=== PATIENT | female | born 2005 | race Caucasian/White ===

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

== ENCOUNTER → 2024-02-20 10:14 | Outpatient (REF) | payer OTHER, SELFPAY | LOC: RAD 10:14 | PROVIDERS: ATTENDING PHYSICIAN Internal Medicine; FAMILY PHYSICIAN Family Medicine | DX: R11.0 Nausea (principal) | CPT/HCPCS: 78264; A9541 ==

== ENCOUNTER → 2024-03-03 19:06 | Outpatient (REF) | payer OTHER, SELFPAY | LOC: PAVMRI 19:06 | PROVIDERS: ATTENDING PHYSICIAN Physician Assistant Medical | DX: R51.9 Headache, unspecified (principal) | CPT/HCPCS: 70551 ==

== ENCOUNTER 2024-03-23 12:49 | Emergency (ER) | payer OTHER, SELFPAY ==
[2024-03-23 12:54] VITALS: BP 116/73
--- NOTE | 2024-03-23 15:21 | ED.GENMED ---
History of Present Illness
General
Chief Complaint: Chest Problem
Source: patient
Exam Limitations: none
Time Seen by Provider: 03/23/24 15:03
History of Present Illness
History of Present Illness:
19yoF with a history of gastroparesis and migraines presenting for evaluation of chest pain. Patient reports having left sided chest pain which she describes as 'heart pain.' Pain started after taking 20mg of Zofran 3 days ago. Pain has been
constant but intermittently worsens. Nothing seems to make the pain better or worse. She was having some palpitations earlier today as well. She called her PCP and she was advised to go to the ED for evaluation. Patient denies any pleuritic pain or
shortness of breath. No dizziness or syncope. No OCP use. She was seen by a webbing supervisor about a year ago and was told that she may have POTS.
Phy Exam
General Physical Exam
General Presentation: well appearing and no apparent distress
General age: appears stated age
General Skin: warm and dry
General Habitus: normal
General Mental: alert
ENT Exam
ENT Exam: normocephalic
Cardiovascular Exam
Cardiovascular Exam: regular rate/rhythm, no edema, no murmur and normal peripheral pulses (2+ PT pulses bilaterally)
Pulmonary Exam
Pulmonary Exam: lungs clear, no respiratory distress, no rales, no crackles and no wheezing
Neurological Exam
Neurological Exam: alert
Ember Coma Scale
Eye Opening: Spontaneous
Verbal Response: Oriented
Motor Response: Obeys Commands
GCS Total Score: 15
Skin Exam
Skin Exam: normal color and warm/dry
Psychiatric Exam
Psychiatric Exam: normal mood/affect
Scores
PE Wells Score
Symptoms of DVT: No
No alternative diagnosis better explains the illness: No
Tachycardia with pulse > 100: No
Immobilization (>=3 days) or surgery within previous 4 weeks: No
Prior history of DVT or pulmonary embolism: No
Presence of hemoptysis: No
Presence of malignancy: No
Pulmonary Embolism Risk Score: 0
Probability of PE: Pt is low risk
PERC Rule Criteria
Age <50 years: Yes
HR <100 bpm: Yes
Room air oxygen sat >94%: Yes
History of DVT or PE: No
Recent trauma or surgery: No
Hemoptysis: No
Exogenous estrogen: No
Clinical signs suggestive of DVT: No
: No
Considered low risk for PE: Yes
PERC Score: 0
PE can be excluded by PERC: Yes
Course
Orders/Labs/Results
Orders:
Orders
03/23/24 12:56
Electrocardiogram (*1) Urgent
Reason for Study: Shortness of Breath
03/23/24 12:57
EKG- Treatment ONCE
Test Result ONCE
03/23/24 13:42
CR Chest - 2 Views Urgent
Comment:
Reason For Exam: cp
03/23/24 15:29
Complete Blood Count/With Diff Urgent
Comprehensive Metabolic Panel Urgent
HCG, Serum Qualitative Screen Urgent
Troponin I Urgent
03/23/24 15:29
03/23/24 15:29
Vital Signs
Initial and Last Documented VS:
Initial Vital Signs
Temp Pulse Resp BP Pulse Ox
98.4 F 68 18 116/73 100
03/23/24 12:54 03/23/24 12:54 03/23/24 12:54 03/23/24 12:54 03/23/24 12:54
Last Documented Vital Signs
Temp Pulse Resp BP Pulse Ox
98.4 F 68 18 116/73 99
03/23/24 12:54 03/23/24 12:54 03/23/24 12:54 03/23/24 12:54 03/23/24 15:38
MDM/Problems Addressed
Differential Diagnosis Includes:
19yoF here with 'heart pain' x 3 days. Started after taking 20mg Zofran. Had some palpitations earlier. VSS. She is well appearing in no distress. Exam is reassuring. Differential diagnosis includes but is not limited to: Musculoskeletal,
pneumonia, pneumothorax, arrhythmia, less likely ACS
Initial ED plan: Check cardiac labs, EKG, hCG, and chest x-ray. Patient is low risk according to Wells score and PERC criteria negative. PE is clinically ruled out.
*EKG
Interpreted by ED Provider?: Yes
EKG Intrepretation Date: 03/23/24
Heart Rate: 62
Rate: normal
Rhythm: sinus
[place]: normal axis
Interval: normal interval
QRS Pattern: normal QRS
Ischemia: no ischemia
*Critical Care Note
Total Time (30-74mins, 75-104mins- exclusive of procedures): Not Applicable
Update Note
Update Note:
Labs overall unremarkable. EKG shows normal sinus rhythm without ischemic changes and troponin within normal limits. Chest x-ray is clear per my interpretation. Heart score is 0. Medication for hospitalization. Advised PCP follow-up and ED
return precautions discussed. She expressed standing and is agreement with plan. She was discharged stable condition.
ED Attending Note
-
Portions of this chart may have been created with voice recognition software.� Occasional wrong word or��sound alike� substitutions may have occurred due to the inherent limitations of voice recognition software.
Discharge Plan
Departure
Patient Disposition: Home (Routine Discharge)
Date of Disposition: 03/23/24
Time of Disposition: 16:42
Patient with high blood pressure during this ER visit?: No
Discharge Problem:
Chest pain
Instructions: Chest Pain PCP Follow Up
Prescriptions:
No Action
fluticasone propionate 1 SPRAY spray,suspension
1 spray intranasal DAILY
Referrals:
Ana Paula Paez CRNP [Family Provider] -
Activity Restrictions/Additional Instructions:
Please follow-up with your family doctor. Return to the ER with any new or worsening symptoms.
Interventions
Interventions:
*Risk Screen - Suicide Last Done: 03/23/24 12:54
*General Assessment Last Done: 03/23/24 12:54
*Neglect/Abuse Screening Last Done: 03/23/24 12:54
ED- Fall Risk Assessment Last Done: 03/23/24 15:38
*ED COVID-19 Vaccine History Last Done: 03/23/24 15:38
ED- Cardiac Assessment Last Done: 03/23/24 15:38
ED- Pulmonary Assessment Last Done: 03/23/24 15:38
Discharge Date and Time
Print Language: GAMBIAN
[2024-03-23 15:25] VITALS: BMI 19.5
[2024-03-23 15:31] VITALS: BP 103/69
[2024-03-23 15:45] LABS: % Basophils 0.5 % (0-2); % Eosinophils 2.9 % (0-6); % Immature Granulocytes 0.2 % (0-0.5); % Lymphocytes 35.9 % (20.5-51.1); % Monocytes 6.1 % (1.7-9.3); % Neutrophils 54.4 % (42.2-75.2); Absolute Eosinophils 0.2 10^3/uL (0-0.7); Absolute Monocytes 0.3 10^3/uL (0.1-0.6); Absolute Neutrophils 3.1 10^3/uL (1.4-6.5); Hematocrit 37.3 % (37.0-47.0); Hemoglobin 12.5 g/dL (12.0-16.0); Mean Corp Hgb Conc. 33.5 g/dL (33.0-37.0); Mean Corpuscular Hgb 29.6 pg (27.0-31.0); Mean Corpuscular Volume 88.4 fL (81.0-99.0); Nucleated Red Blood Cells % 0 %; Platelet Count 259 10^3/uL (130-400); Red Blood Cell Count 4.22 10^6/uL (4.20-5.40); White Blood Cell Count 5.6 10^3/uL (4.8-10.8)
[2024-03-23 15:53] LABS: HCG, Serum Qualitative Screen Negative
[2024-03-23 15:57] LABS: ALT (SGPT) 12 U/L (0-35); AST (SGOT) 22 U/L (14-36); Albumin 4.6 g/dl (3.5-5.0); Alkaline Phosphatase 67 U/L (38-126); Blood Urea Nitrogen 11 mg/dl (7-17); Calcium 9.6 mg/dl (8.4-10.2); Carbon Dioxide 29 mmol/L (22-30); Chloride 101 mmol/L (98-107); Estimated Creatinine Clearance 110 ml/min; Glucose 93 mg/dl (70-99); Potassium 4.2 mmol/L (3.5-5.1); Sodium 137 mmol/L (135-145); Total Bilirubin 0.5 mg/dl (0.2-1.3); Total Protein 7.1 g/dl (6.3-8.2); eGFR > 60.00
[2024-03-23 16:00] VITALS: BP 105/56
[2024-03-23 16:08] LABS: Troponin I < 0.012 ng/ml
[2024-03-23 17:21] VITALS: BP 111/62
== END 2024-03-23 17:21 | disposition home or self-care (01) ==
LOC: EMR 12:49
PROVIDERS: Emergency Medicine; EMERGENCY PHYSICIAN Emergency Medicine; FAMILY PHYSICIAN Nurse Practitioner Family
DX: R07.9 Chest pain, unspecified (principal); R00.2 Palpitations
CPT/HCPCS: 99285; 71046; 80053; 84484; 84703; 85025; 93005